=== PATIENT | female | born 1990 | race Asian ===

== ENCOUNTER 2018-10-19 08:34 | Outpatient (CLI) | payer BC, OTHER | END 2018-10-19 23:59 | disposition home or self-care (01) | LOC: XRAY 08:34 | PROVIDERS: ATTEND Legal Medicine | DX: Z11.1 Encounter for screening for respiratory tuberculosis (principal) | CPT/HCPCS: 71046 ==

== ENCOUNTER 2019-12-24 14:01 | Emergency (ER) | payer BC, OTHER ==
[~2019-12-24] VITALS: Ht 160 cm; Wt 56.7 kg
--- NOTE | 2019-12-24 14:30 | NUR ---
Patient discharged to home in stable condition. Written and verbal after care instructions given. Patient verbalizes understanding of instructions. Stressed follow up or return to ER for worsening s/s.
== END 2019-12-24 14:45 | disposition home or self-care (01) ==
LOC: ER 14:13
DX: S29.012A Strain of muscle and tendon of back wall of thorax, initial encounter (principal); X50.0XXA Overexertion from strenuous movement or load, initial encounter; X50.9XXA Other and unspecified overexertion or strenuous movements or postures, initial encounter; Y93.F2 Activity, caregiving, lifting; Y92.239 Unspecified place in hospital as the place of occurrence of the external cause; Y99.0 Civilian activity done for income or pay
CPT/HCPCS: A4663